=== PATIENT | male | born 1960 | race Hispanic/Latino ===

== ENCOUNTER 2023-09-18 13:49 | Emergency (ER) | payer OTHER ==
[2023-09-18] MEDS ORDERED: Ketorolac Tromethamine 30 MG (1 mL) VIAL ONE (15:16)
== END 2023-09-18 15:25 ==
LOC: ERS 13:49 → EEVIPCON 13:49 → ERS 15:25
DX: M79.641 Pain in right hand (principal); I10 Essential (primary) hypertension; Z79.82 Long term (current) use of aspirin; Z79.899 Other long term (current) drug therapy
CPT/HCPCS: 96372; J1885